=== PATIENT | male | born 1955 | race Caucasian/White ===

== ENCOUNTER 2019-07-22 17:08 | Emergency (ER) | payer SELFPAY ==
[2019-07-22 17:15] VITALS: BP 130/85; PULSE 123; RESP 22; TEMP 37.1; O2SAT 94
--- NOTE | 2019-07-22 17:40 | PC.NURSE ---
Pt had bowel movement in his pants. Provided with green disposable scrubs and assisted pt to restroom. Pt checked on a few times and states he isnt ready to leave restroom. Pt sitting on toilet.
--- NOTE | 2019-07-22 18:43 | ED.ALCOHOL ---
HPI - Alcohol General Chief Complaint: Toxicology Problem Stated Complaint: ETOH Time Seen by Provider: 07/22/19 18:11 Source: EMS Mode of arrival: Ambulatory Limitations: other (Intoxication) History of Present Illness HPI narrative: Patient is a 64-year-old male is brought in by EMS. They were called by the police. He was reported that the patient was sleeping besides some bushes next to 1 of the area businesses. Please were called to the scene by an unknown individual. It was reported that the patient told the police that the spot where he was found was where his bike trailer broke down so that is where he decided to lay down to try to get some sleep. He did admit to drinking alcohol. At some point during this interaction the patient did vomit and reportedly had an episode of diarrhea. EMS was called he was transported to the emergency department. Upon arrival patient had no complaints. He stated that he had ?some bad alcohol ?which gave him the diarrhea. He denied any symptoms. Declined to have any blood drawn. Review of Systems Constitutional Constitutional: Denies fever(s) Cardiovascular Cardiovascular: Denies chest pain and Denies dyspnea Respiratory Respiratory: Denies dyspnea Gastrointestinal Gastrointestinal: Reports diarrhea Musculoskeletal Musculoskeletal: Denies myalgias and Denies arthralgias Integumentary/Breasts Skin/Breast: Denies rash Neurologic Comments: Intoxicated Hematologic/Lymphatic Hematologic/Lymphatic: Denies easy bleeding and Denies easy bruising Patient History Medical History Patient denies medical problems (Acute) Social History lives independently: Yes Exam Initial Vital Signs Initial Vital Signs: Vital Signs Temperature 98.8 F 07/22/19 17:15 Pulse Rate 123 H 07/22/19 17:15 Respiratory Rate 22 07/22/19 17:15 Blood Pressure 130/85 07/22/19 17:15 Pulse Oximetry 94 07/22/19 17:15 Const General: disheveled Orientation: awake, oriented to person, oriented to place and not oriented to time HENMT Head: normal to inspection and normocephalic Resp Effort & Inspection: normal respiratory effort Auscultation: clear to auscultation bilaterally Cardio Rate: tachycardic Rhythm: regular rhythm GI Inspection: non-distended Palpation: soft Skin Lesions: no lesions Rashes: no rashes Neuro General: alert, awake and oriented (Person, place) Extrem General: normal to inspection and capillary refill normal Psych Appearance: grossly normal and well kempt Course Orders Ordered: Discontinued Medications Ondansetron HCl (Zofran) 4 mg IM NOW ONE Stop: 07/22/19 17:15 Last Admin: 07/22/19 17:25 Dose: Not Given Documented by: BESSIE Vital Signs Vital signs: Vital Signs - 8 hr 07/22/19 21:28 Pulse Rate 82 Respiratory Rate 19 Blood Pressure [Right Arm] 115/77 Pulse Oximetry 94 MDM - Alcohol MDM Narrative Medical decision making narrative: Patient was clinically intoxicated upon arrival however was oriented to person, place, time. He also seemed to have a fairly good understanding of what led to him being here in the emergency department. He denies any abdominal pain. Patient did sleep in the room for several hours. When he woke he was much more coherent. Ambulated without any problems. Again denied symptoms. We were able to contact a friend to come pick him up. Patient was discharged. He was informed that he should not drive. He was given return precautions. He expressed understanding and agreement with plan. Discharge Plan Departure Patient Disposition: Home Clinical Impression: Alcoholic intoxication Qualifiers: Complication of substance-induced condition: with unspecified complication Qualified Code(s): F10.929 - Alcohol use, unspecified with intoxication, unspecified Diarrhea Qualifiers: Diarrhea type: unspecified type Qualified Code(s): R19.7 - Diarrhea, unspecified Discharge Date/Time: 07/22/19 22:38 Instructions: DI for Alcohol Abuse Activity Restrictions/Additional Instructions: No driving for the next 24 hours or in the future if you partake in intoxicating substances. I recommend that you contact your primary provider for follow-up. If you do not have a primary doctor in this area you can contact [phone] the help you establish care. Return to the emergency department for any new or worsening symptoms
--- NOTE | 2019-07-22 18:45 | PC.NURSE ---
pt found laying on floor in bathroom of room #13, dr. jimenez in room, pt unsteady on feet, assist to bed , doctor to see
[2019-07-22 21:28] VITALS: BP 115/77; PULSE 82; RESP 19; O2SAT 94
== END 2019-07-22 22:38 | disposition home or self-care (01) ==
PROVIDERS: Emergency Provider Emergency Medicine
DX: F10.929 Alcohol use, unspecified with intoxication, unspecified (principal); R19.7 Diarrhea, unspecified
CPT/HCPCS: 99282